=== PATIENT | male | born 1955 | race Caucasian/White ===

== ENCOUNTER → 2017-06-01 | Outpatient (CLI) | payer OTHER ==
--- NOTE | 2017-06-01 13:06 | RADRPT ---
EXAM DATE/TIME: 06/01/2017 12:41 [place] COMPARISON: No previous studies available for comparison. INDICATIONS : Lower back pain running down right side of leg MEDICAL HISTORY : None. SURGICAL HISTORY : None. ENCOUNTER: Initial ACUITY: 1 month PAIN SCORE: 4/10 LOCATION: L-spine FINDINGS: There are five non-rib bearing vertebral bodies. The vertebral bodies are in normal alignment withou t evidence of subluxation or scoliosis. There are mild degenerative disc changes with slight disc spa ce narrowing and hypertrophic change. The pedicles are intact. Bony mineralization is normal. There is a minimal scoliosis. There are degenerative changes involving the lower facet joints greatest on t he left at L5-S1. No fracture is identified. CONCLUSION: 1. Mild degenerative disc change. 2. Mild degenerative joint change greatest involving left facet joint at L5-S1. 3. Minimal scoliosis. Jaime Ramos MD on June 01, 2017 at 13:02 Board Certified Radiologist. This report was verified electronically.
== END ==
LOC: HRAD 12:25
PROVIDERS: ATTEND Family Medicine
DX: M54.30 Sciatica, unspecified side (principal); R00.2 Palpitations
CPT/HCPCS: 72110